=== PATIENT | female | born 1995 ===

== ENCOUNTER 2023-03-09 05:47 | Inpatient (IN) | payer OTHER ==
[~2023-03-09] VITALS: Ht 162.6 cm; Wt 88.5 kg
[2023-03-09] MEDS ORDERED: PRENATAL TABLE1 EAC4 PO (07:35)
== END 2023-03-12 11:52 | disposition home or self-care (01) | DRG 807 ==
LOC: LDR 05:47 → OB/GYN 03-10 22:20
PROVIDERS: ADMIT Obstetrics & Gynecology; ATTEND Obstetrics & Gynecology
PROC: 4A1HXCZ Monitoring of Products of Conception, Cardiac Rate, External Approach (ICD-10-PCS; 2023-03-09)
PROC: 3E0P7VZ Introduction of Hormone into Female Reproductive, Via Natural or Artificial Opening (ICD-10-PCS; 2023-03-09)
PROC: 10E0XZZ Delivery of Products of Conception, External Approach (ICD-10-PCS; principal; 2023-03-10)
PROC: 0KQM0ZZ Repair Perineum Muscle, Open Approach (ICD-10-PCS; 2023-03-10)
PROC: 3E033VJ Introduction of Other Hormone into Peripheral Vein, Percutaneous Approach (ICD-10-PCS; 2023-03-10)
DX: O70.1 Second degree perineal laceration during delivery (principal); Z37.0 Single live birth; Z3A.39 39 weeks gestation of pregnancy; Z20.822 Contact with and (suspected) exposure to COVID-19